=== PATIENT | male | born 1940 | race Caucasian/White ===

== ENCOUNTER 2023-05-11 12:15 | Inpatient (IN) | payer MEDICARE, OTHER ==
[~2023-05-11] VITALS: Ht 188 cm; Wt 68.7 kg
[2023-05-11] MEDS ORDERED: METO1TAB32 PO (12:32)
[2023-05-11] MEDS ORDERED: LEVO25TA5 PO (12:32)
[2023-05-11] MEDS ORDERED: NITR100C2 PO (12:32)
[2023-05-11] MEDS ORDERED: METF500T13 PO (12:32)
[2023-05-11] MEDS ORDERED: ATOR40TA75 PO (12:32)
[2023-05-11 14:42] LABS: HEMATOCRIT 46.7 % (42.0-52.0); HEMOGLOBIN 15.8 g/dl (13.5-17.5); MEAN CORPUSCULAR HEMOGLOBIN 29.9 pg (27.0-33.0); MEAN CORPUSCULAR HGB CONC 33.8 g/dl (32.0-36.5); MEAN CORPUSCULAR VOLUME 88.3 fl (80.0-96.0); PLATELET COUNT, AUTOMATED 285 10^3/uL (150-450); RED BLOOD COUNT 5.29 10^6/uL (4.30-6.10); WHITE BLOOD COUNT 10.4 10^3/uL (4.0-10.0)
[2023-05-11 15:15] LABS: ETHYL ALCOHOL (ETHANOL) < 0.003 % (0.000-0.010)
[2023-05-11 15:16] LABS: SALICYLATE LEVEL < 3.0 MG/DL (<30)
[2023-05-11 15:17] LABS: ALBUMIN 4.1 G/DL (3.2-5.2); ALKALINE PHOSPHATASE 90 U/L (46-116); ALT/SGPT 26 U/L (7.0-40); AST/SGOT 17 U/L (<34); BILIRUBIN,DIRECT 0.6 MG/DL (<0.4); BILIRUBIN,TOTAL 1.7 MG/DL (0.3-1.2); BLOOD UREA NITROGEN 30 MG/DL (9-23); CARBON DIOXIDE LEVEL 26 MMOL/L (20-31); CHLORIDE LEVEL 100 MMOL/L (98-107); CREATININE FOR GFR 1.17 MG/DL (0.70-1.30); GLOMERULAR FILTRATION RATE > 60.0 (>35); GLUCOSE, FASTING 113 MG/DL (74-106); POTASSIUM SERUM 3.9 MMOL/L (3.5-5.1); SODIUM LEVEL 135 MMOL/L (136-145); TOTAL PROTEIN 7.6 G/DL (5.7-8.2)
[2023-05-11 15:50] LABS: AMPHETAMINES LEVEL URINE NEGATIVE (NEGATIVE); BARBITURATES URINE NEGATIVE (NEGATIVE); BENZODIAZEPINES URINE NEGATIVE (NEGATIVE); CANNABINOIDS URINE NEGATIVE (NEGATIVE); COCAINE METABOLITE URINE NEGATIVE (NEGATIVE); METHADONE URINE NEGATIVE (NEGATIVE); OPIATES URINE NEGATIVE (NEGATIVE); PHENCYCLIDINE URINE NEGATIVE (NEGATIVE)
[2023-05-11] MEDS ORDERED: MOM 30ML SUSPENSION UDC PO PRN (17:40)
[2023-05-11] MEDS ORDERED: traZODone 50 MG TAB PO PRN (17:40)
[2023-05-11] MEDS ORDERED: MAALOX 30 ML SUSP *UDC PO PRN (17:40)
[2023-05-11] MEDS ORDERED: MED REC IN PROGRESS XX SCH (18:40)
[2023-05-11] MEDS ORDERED: HOME MED LIST COMPLETE! XX SCH (18:55)
[2023-05-11 23:18] VITALS: BP 139/74; TEMP 97.1; O2SAT 99
[2023-05-12 06:40] VITALS: BP 132/79; TEMP 97.6; O2SAT 98
[2023-05-12 09:30] VITALS: BP 136/69; TEMP 97.9; O2SAT 99
[2023-05-12] MEDS: SERTRALINE HCL 25 MG TABLET PO SCH (12:12)
[2023-05-12] MEDS ORDERED: COMBIVENT RESPIMAT 100-20MCG INHALER 4GM INH PRN (12:25)
[2023-05-12] MEDS ORDERED: ISOVUE-370 76% 100ML VIAL As Ordered ONE (13:52)
[2023-05-12 14:30] VITALS: BP 141/79; TEMP 98.1; O2SAT 99
[2023-05-12] MEDS: ENOXAPARIN 40MG/0.4ML SYRINGE (J1650 PER 10MG) SC SCH (14:43)
[2023-05-12] MEDS: METOPROLOL SUCC *XL* 25MG TAB (TopROL *XL*) PO SCH (14:43)
[2023-05-12] MEDS: COMBIVENT RESPIMAT 100-20MCG INHALER 4GM INH SCH ×2 (14:43→19:33)
[2023-05-12] MEDS: LEVOTHYROXINE 25MCG TABLET (0.025MG) PO SCH (14:44)
[2023-05-12] MEDS: NIRMATRELVIR/RITONAVIR CO-PACK (EMERGENCY USE AUTH) PO SCH ×2 (14:47→20:27)
[2023-05-12] MEDS ORDERED: MIRALAX *UNIT DOSE* 17GM PACKET PO PRN (17:40)
[2023-05-12] MEDS ORDERED: SENNA 8.6 MG TAB (SENOKOT) PO PRN (17:40)
[2023-05-12] MEDS: metFORMIN (GLUCOPHAGE) 500MG TAB PO SCH (17:41)
[2023-05-12] MEDS ORDERED: LACTULOSE 20GM/30ML SYRUP UDC PO ONE (18:00)
[2023-05-13] MEDS: IBUPROFEN 400MG TAB PO PRN (00:07)
[2023-05-13] MEDS: COMBIVENT RESPIMAT 100-20MCG INHALER 4GM INH SCH ×4 (01:46→20:38)
[2023-05-13] MEDS: LEVOTHYROXINE 25MCG TABLET (0.025MG) PO SCH (06:03)
[2023-05-13 06:42] VITALS: BP 124/62; TEMP 97.9; O2SAT 99
[2023-05-13] MEDS: SERTRALINE HCL 25 MG TABLET PO SCH (09:38)
[2023-05-13] MEDS: metFORMIN (GLUCOPHAGE) 500MG TAB PO SCH ×2 (09:38→18:38)
[2023-05-13] MEDS: NIRMATRELVIR/RITONAVIR CO-PACK (EMERGENCY USE AUTH) PO SCH ×2 (09:41→20:37)
[2023-05-13] MEDS: ENOXAPARIN 40MG/0.4ML SYRINGE (J1650 PER 10MG) SC SCH (09:55)
[2023-05-13] MEDS: METOPROLOL SUCC *XL* 25MG TAB (TopROL *XL*) PO SCH (09:55)
[2023-05-13] MEDS: CEFDINIR 300 MG CAP (OMNICEF) PO SCH ×2 (14:49→20:36)
[2023-05-13 18:29] VITALS: BP 138/84; TEMP 98.1; O2SAT 99
[2023-05-14] MEDS: COMBIVENT RESPIMAT 100-20MCG INHALER 4GM INH SCH ×4 (01:44→20:32)
[2023-05-14] MEDS: LEVOTHYROXINE 25MCG TABLET (0.025MG) PO SCH (06:03)
[2023-05-14 06:12] VITALS: BP 124/62; TEMP 97.6; O2SAT 95
[2023-05-14] MEDS: SERTRALINE HCL 25 MG TABLET PO SCH (08:50)
[2023-05-14] MEDS: METOPROLOL SUCC *XL* 25MG TAB (TopROL *XL*) PO SCH (08:50)
[2023-05-14] MEDS: CEFDINIR 300 MG CAP (OMNICEF) PO SCH ×2 (08:50→20:33)
[2023-05-14] MEDS: ENOXAPARIN 40MG/0.4ML SYRINGE (J1650 PER 10MG) SC SCH (08:52)
[2023-05-14] MEDS: metFORMIN (GLUCOPHAGE) 500MG TAB PO SCH ×2 (08:59→18:33)
[2023-05-14] MEDS: NIRMATRELVIR/RITONAVIR CO-PACK (EMERGENCY USE AUTH) PO SCH ×2 (09:33→20:34)
[2023-05-14 18:35] VITALS: BP 139/69; TEMP 98.3; O2SAT 98
[2023-05-14] MEDS: ACETAMINOPHEN TAB 650MG DOSE (2X325MG) PO PRN (23:00)
[2023-05-15] MEDS: COMBIVENT RESPIMAT 100-20MCG INHALER 4GM INH SCH ×4 (02:15→20:22)
[2023-05-15] MEDS: LEVOTHYROXINE 25MCG TABLET (0.025MG) PO SCH (05:43)
[2023-05-15 05:53] VITALS: BP 119/71; TEMP 98.1; O2SAT 99
[2023-05-15 06:50] LABS: HEMATOCRIT 41.7 % (42.0-52.0); HEMOGLOBIN 13.9 g/dl (13.5-17.5); MEAN CORPUSCULAR HEMOGLOBIN 29.7 pg (27.0-33.0); MEAN CORPUSCULAR HGB CONC 33.3 g/dl (32.0-36.5); MEAN CORPUSCULAR VOLUME 89.1 fl (80.0-96.0); PLATELET COUNT, AUTOMATED 240 10^3/uL (150-450); RED BLOOD COUNT 4.68 10^6/uL (4.30-6.10); WHITE BLOOD COUNT 6.5 10^3/uL (4.0-10.0)
[2023-05-15] MEDS: metFORMIN (GLUCOPHAGE) 500MG TAB PO SCH ×2 (08:36→17:40)
[2023-05-15] MEDS: SERTRALINE HCL 50 MG TAB PO SCH (08:36)
[2023-05-15] MEDS: CEFDINIR 300 MG CAP (OMNICEF) PO SCH ×2 (08:38→20:22)
[2023-05-15] MEDS: NIRMATRELVIR/RITONAVIR CO-PACK (EMERGENCY USE AUTH) PO SCH ×2 (08:38→20:21)
[2023-05-15] MEDS: ENOXAPARIN 40MG/0.4ML SYRINGE (J1650 PER 10MG) SC SCH (08:39)
[2023-05-15] MEDS: METOPROLOL SUCC *XL* 25MG TAB (TopROL *XL*) PO SCH (08:53)
[2023-05-15 09:51] LABS: CK-MB VALUE MASS < 1.0 NG/ML (<3.6)
[2023-05-15 09:55] LABS: CPK CREATINE PHOSPHOKINASE 39 U/L (46-171); MB/CK RELATIVE INDEX 2.56 (< OR =4)
[2023-05-15 16:06] VITALS: BP 126/81; TEMP 98.2; O2SAT 100
[2023-05-16] MEDS: COMBIVENT RESPIMAT 100-20MCG INHALER 4GM INH SCH ×4 (02:01→20:26)
[2023-05-16] MEDS: LEVOTHYROXINE 25MCG TABLET (0.025MG) PO SCH (05:26)
[2023-05-16 06:21] VITALS: BP 107/59; TEMP 98; O2SAT 97
[2023-05-16] MEDS: ENOXAPARIN 40MG/0.4ML SYRINGE (J1650 PER 10MG) SC SCH (08:02)
[2023-05-16] MEDS: SERTRALINE HCL 50 MG TAB PO SCH (08:03)
[2023-05-16] MEDS: CEFDINIR 300 MG CAP (OMNICEF) PO SCH ×2 (08:03→20:25)
[2023-05-16] MEDS: metFORMIN (GLUCOPHAGE) 500MG TAB PO SCH ×2 (08:03→17:56)
[2023-05-16] MEDS: NIRMATRELVIR/RITONAVIR CO-PACK (EMERGENCY USE AUTH) PO SCH ×2 (08:04→21:00)
[2023-05-16] MEDS: METOPROLOL SUCC *XL* 25MG TAB (TopROL *XL*) PO SCH (08:18)
[2023-05-16 16:05] VITALS: BP 126/72; TEMP 98.7; O2SAT 97
[2023-05-16] MEDS: diphenhydrAMINE 25MG CAP PO PRN ×2 (17:56→20:25)
[2023-05-16] MEDS: ACETAMINOPHEN TAB 650MG DOSE (2X325MG) PO PRN (17:56)
[2023-05-16] MEDS: IBUPROFEN 400MG TAB PO PRN (20:25)
[2023-05-16] MEDS: traZODone 25MG PER 1/2 TABLET PO PRN (20:26)
[2023-05-17] MEDS: COMBIVENT RESPIMAT 100-20MCG INHALER 4GM INH SCH ×4 (02:45→21:28)
[2023-05-17] MEDS: LEVOTHYROXINE 25MCG TABLET (0.025MG) PO SCH (05:28)
[2023-05-17] MEDS: METOPROLOL SUCC *XL* 25MG TAB (TopROL *XL*) PO SCH (08:11)
[2023-05-17] MEDS: metFORMIN (GLUCOPHAGE) 500MG TAB PO SCH ×2 (08:11→18:02)
[2023-05-17] MEDS: ATORVASTATIN 20 MG TAB PO SCH (08:12)
[2023-05-17] MEDS: SERTRALINE HCL 50 MG TAB PO SCH (08:12)
[2023-05-17] MEDS: ENOXAPARIN 40MG/0.4ML SYRINGE (J1650 PER 10MG) SC SCH (08:12)
[2023-05-17] MEDS: CEFDINIR 300 MG CAP (OMNICEF) PO SCH ×2 (08:12→21:29)
[2023-05-17 08:25] VITALS: BP 126/74
[2023-05-17] MEDS: diphenhydrAMINE 25MG CAP PO PRN ×2 (11:56→21:29)
[2023-05-17] MEDS: ACETAMINOPHEN TAB 650MG DOSE (2X325MG) PO PRN (11:56)
[2023-05-17 16:04] VITALS: BP 111/60; TEMP 97.9; O2SAT 99
[2023-05-17] MEDS: traZODone 25MG PER 1/2 TABLET PO PRN (21:28)
[2023-05-18] MEDS: COMBIVENT RESPIMAT 100-20MCG INHALER 4GM INH SCH ×4 (02:12→20:21)
[2023-05-18] MEDS: LEVOTHYROXINE 25MCG TABLET (0.025MG) PO SCH (05:28)
[2023-05-18 06:29] VITALS: BP 107/61; TEMP 97.3; O2SAT 97
[2023-05-18 07:31] LABS: HEMATOCRIT 41.3 % (42.0-52.0); HEMOGLOBIN 13.8 g/dl (13.5-17.5); MEAN CORPUSCULAR HEMOGLOBIN 29.7 pg (27.0-33.0); MEAN CORPUSCULAR HGB CONC 33.4 g/dl (32.0-36.5); PLATELET COUNT, AUTOMATED 214 10^3/uL (150-450); RED BLOOD COUNT 4.64 10^6/uL (4.30-6.10); WHITE BLOOD COUNT 7.2 10^3/uL (4.0-10.0)
[2023-05-18] MEDS: METOPROLOL SUCC *XL* 25MG TAB (TopROL *XL*) PO SCH (08:57)
[2023-05-18] MEDS: SERTRALINE HCL 50 MG TAB PO SCH (09:13)
[2023-05-18] MEDS: CEFDINIR 300 MG CAP (OMNICEF) PO SCH ×2 (09:13→20:22)
[2023-05-18] MEDS: metFORMIN (GLUCOPHAGE) 500MG TAB PO SCH ×2 (09:13→18:00)
[2023-05-18] MEDS: ATORVASTATIN 20 MG TAB PO SCH (09:13)
[2023-05-18] MEDS: ENOXAPARIN 40MG/0.4ML SYRINGE (J1650 PER 10MG) SC SCH (09:14)
[2023-05-18] MEDS: diphenhydrAMINE 25MG CAP PO PRN (09:52)
[2023-05-18] MEDS: ACETAMINOPHEN TAB 650MG DOSE (2X325MG) PO PRN (10:43)
[2023-05-18 11:55] LABS: ALBUMIN 3.4 G/DL (3.2-5.2); ALKALINE PHOSPHATASE 68 U/L (46-116); ALT/SGPT 16 U/L (7.0-40); AST/SGOT 23 U/L (<34); BILIRUBIN,TOTAL 0.9 MG/DL (0.3-1.2); BLOOD UREA NITROGEN 24 MG/DL (9-23); CALCIUM LEVEL 8.4 MG/DL (8.3-10.6); CARBON DIOXIDE LEVEL 22 MMOL/L (20-31); CHLORIDE LEVEL 106 MMOL/L (98-107); CREATININE FOR GFR 1.09 MG/DL (0.70-1.30); GLOMERULAR FILTRATION RATE > 60.0 (>35); GLUCOSE, FASTING 79 MG/DL (74-106); POTASSIUM SERUM 5.1 MMOL/L (3.5-5.1); SODIUM LEVEL 139 MMOL/L (136-145); TOTAL PROTEIN 6.5 G/DL (5.7-8.2)
[2023-05-18 18:33] VITALS: BP 136/77; TEMP 98.6; O2SAT 96
[2023-05-18] MEDS: traZODone 25MG PER 1/2 TABLET PO PRN (20:22)
[2023-05-19] MEDS: COMBIVENT RESPIMAT 100-20MCG INHALER 4GM INH SCH ×4 (02:02→21:07)
[2023-05-19] MEDS: LEVOTHYROXINE 25MCG TABLET (0.025MG) PO SCH (05:49)
[2023-05-19 06:23] VITALS: BP 147/77; TEMP 98; O2SAT 97
[2023-05-19] MEDS: METOPROLOL SUCC *XL* 25MG TAB (TopROL *XL*) PO SCH (08:22)
[2023-05-19] MEDS: ENOXAPARIN 40MG/0.4ML SYRINGE (J1650 PER 10MG) SC SCH (08:23)
[2023-05-19] MEDS: CEFDINIR 300 MG CAP (OMNICEF) PO SCH ×2 (08:23→21:07)
[2023-05-19] MEDS: ATORVASTATIN 20 MG TAB PO SCH (08:23)
[2023-05-19] MEDS: SERTRALINE HCL 50 MG TAB PO SCH (08:23)
[2023-05-19] MEDS: metFORMIN (GLUCOPHAGE) 500MG TAB PO SCH ×2 (08:24→17:25)
[2023-05-19 10:21] VITALS: BP 119/79; TEMP 97.9; O2SAT 95
[2023-05-19 17:39] VITALS: BP 141/74; TEMP 97.9; O2SAT 99
[2023-05-19] MEDS: traZODone 25MG PER 1/2 TABLET PO PRN (21:07)
[2023-05-20] MEDS: COMBIVENT RESPIMAT 100-20MCG INHALER 4GM INH SCH ×4 (02:30→20:47)
[2023-05-20] MEDS: LEVOTHYROXINE 25MCG TABLET (0.025MG) PO SCH (05:54)
[2023-05-20 06:02] VITALS: BP 120/69; TEMP 98.1; O2SAT 95
[2023-05-20] MEDS: SERTRALINE HCL 50 MG TAB PO SCH (08:35)
[2023-05-20] MEDS: CEFDINIR 300 MG CAP (OMNICEF) PO SCH ×2 (08:35→20:47)
[2023-05-20] MEDS: ATORVASTATIN 20 MG TAB PO SCH (08:35)
[2023-05-20] MEDS: metFORMIN (GLUCOPHAGE) 500MG TAB PO SCH ×2 (08:36→17:06)
[2023-05-20] MEDS: ENOXAPARIN 40MG/0.4ML SYRINGE (J1650 PER 10MG) SC SCH (08:36)
[2023-05-20] MEDS: METOPROLOL SUCC *XL* 25MG TAB (TopROL *XL*) PO SCH (08:44)
[2023-05-20] MEDS: diphenhydrAMINE 25MG CAP PO PRN (15:07)
[2023-05-21] MEDS: COMBIVENT RESPIMAT 100-20MCG INHALER 4GM INH SCH ×4 (03:02→20:35)
[2023-05-21] MEDS: LEVOTHYROXINE 25MCG TABLET (0.025MG) PO SCH (05:40)
[2023-05-21 06:26] LABS: HEMATOCRIT 40.1 % (42.0-52.0); HEMOGLOBIN 13.5 g/dl (13.5-17.5); MEAN CORPUSCULAR HEMOGLOBIN 29.6 pg (27.0-33.0); MEAN CORPUSCULAR HGB CONC 33.7 g/dl (32.0-36.5); MEAN CORPUSCULAR VOLUME 87.9 fl (80.0-96.0); PLATELET COUNT, AUTOMATED 204 10^3/uL (150-450); RED BLOOD COUNT 4.56 10^6/uL (4.30-6.10); WHITE BLOOD COUNT 7.5 10^3/uL (4.0-10.0)
[2023-05-21 06:38] VITALS: BP 118/63; TEMP 98.5; O2SAT 96
[2023-05-21] MEDS: ATORVASTATIN 20 MG TAB PO SCH (08:19)
[2023-05-21] MEDS: ENOXAPARIN 40MG/0.4ML SYRINGE (J1650 PER 10MG) SC SCH (08:19)
[2023-05-21] MEDS: CEFDINIR 300 MG CAP (OMNICEF) PO SCH ×2 (08:19→20:34)
[2023-05-21] MEDS: metFORMIN (GLUCOPHAGE) 500MG TAB PO SCH ×2 (08:19→17:03)
[2023-05-21] MEDS: METOPROLOL SUCC *XL* 25MG TAB (TopROL *XL*) PO SCH (08:35)
[2023-05-21] MEDS: SERTRALINE HCL 25 MG TABLET PO SCH (08:47)
[2023-05-21 17:12] VITALS: BP 121/67; TEMP 97.3; O2SAT 98
[2023-05-22] MEDS: COMBIVENT RESPIMAT 100-20MCG INHALER 4GM INH SCH ×4 (01:37→20:41)
[2023-05-22] MEDS: LEVOTHYROXINE 25MCG TABLET (0.025MG) PO SCH (05:35)
[2023-05-22 06:25] VITALS: BP 120/66; TEMP 98; O2SAT 98
[2023-05-22] MEDS: ENOXAPARIN 40MG/0.4ML SYRINGE (J1650 PER 10MG) SC SCH (08:29)
[2023-05-22] MEDS: CEFDINIR 300 MG CAP (OMNICEF) PO SCH ×2 (08:30→20:41)
[2023-05-22] MEDS: metFORMIN (GLUCOPHAGE) 500MG TAB PO SCH ×2 (08:30→17:17)
[2023-05-22] MEDS: SERTRALINE HCL 25 MG TABLET PO SCH (08:30)
[2023-05-22] MEDS: ATORVASTATIN 20 MG TAB PO SCH (08:30)
[2023-05-22] MEDS: METOPROLOL SUCC *XL* 25MG TAB (TopROL *XL*) PO SCH (08:31)
[2023-05-22] MEDS: ACETAMINOPHEN TAB 650MG DOSE (2X325MG) PO PRN (13:10)
[2023-05-22 16:28] VITALS: BP 125/74; TEMP 98.1; O2SAT 99
[2023-05-22 16:30] VITALS: BP 144/68; TEMP 97.3; O2SAT 98
[2023-05-23] MEDS: COMBIVENT RESPIMAT 100-20MCG INHALER 4GM INH SCH ×4 (02:36→20:20)
[2023-05-23] MEDS: LEVOTHYROXINE 25MCG TABLET (0.025MG) PO SCH (05:49)
[2023-05-23 06:16] VITALS: BP 139/65; TEMP 97.9; O2SAT 100
[2023-05-23] MEDS: SERTRALINE HCL 25 MG TABLET PO SCH (09:00)
[2023-05-23] MEDS: ATORVASTATIN 20 MG TAB PO SCH (09:00)
[2023-05-23] MEDS: ENOXAPARIN 40MG/0.4ML SYRINGE (J1650 PER 10MG) SC SCH (09:01)
[2023-05-23] MEDS: metFORMIN (GLUCOPHAGE) 500MG TAB PO SCH ×2 (09:02→17:27)
[2023-05-23] MEDS: METOPROLOL SUCC *XL* 25MG TAB (TopROL *XL*) PO SCH (09:02)
[2023-05-23 16:43] VITALS: BP 138/59; TEMP 98.3; O2SAT 99
[2023-05-24] MEDS: COMBIVENT RESPIMAT 100-20MCG INHALER 4GM INH SCH ×4 (02:58→20:24)
[2023-05-24] MEDS: LEVOTHYROXINE 25MCG TABLET (0.025MG) PO SCH (06:20)
[2023-05-24 06:52] VITALS: BP 108/58; TEMP 98.3; O2SAT 95
[2023-05-24 07:28] LABS: HEMATOCRIT 41.2 % (42.0-52.0); HEMOGLOBIN 13.8 g/dl (13.5-17.5); MEAN CORPUSCULAR HEMOGLOBIN 29.5 pg (27.0-33.0); MEAN CORPUSCULAR HGB CONC 33.5 g/dl (32.0-36.5); PLATELET COUNT, AUTOMATED 226 10^3/uL (150-450); RED BLOOD COUNT 4.68 10^6/uL (4.30-6.10); WHITE BLOOD COUNT 8.6 10^3/uL (4.0-10.0)
[2023-05-24] MEDS: ENOXAPARIN 40MG/0.4ML SYRINGE (J1650 PER 10MG) SC SCH (08:12)
[2023-05-24] MEDS: metFORMIN (GLUCOPHAGE) 500MG TAB PO SCH ×2 (08:12→17:01)
[2023-05-24] MEDS: METOPROLOL SUCC *XL* 25MG TAB (TopROL *XL*) PO SCH (08:13)
[2023-05-24] MEDS: ATORVASTATIN 20 MG TAB PO SCH (08:13)
[2023-05-24] MEDS: SERTRALINE HCL 25 MG TABLET PO SCH (08:13)
[2023-05-24 18:16] VITALS: BP 120/79; TEMP 98.8; O2SAT 96
[2023-05-24] MEDS: traZODone 25MG PER 1/2 TABLET PO PRN (20:24)
[2023-05-25] MEDS: COMBIVENT RESPIMAT 100-20MCG INHALER 4GM INH SCH ×4 (02:04→21:10)
[2023-05-25] MEDS: LEVOTHYROXINE 25MCG TABLET (0.025MG) PO SCH (06:05)
[2023-05-25 06:23] VITALS: BP 138/92; TEMP 97.2; O2SAT 99
[2023-05-25] MEDS: ENOXAPARIN 40MG/0.4ML SYRINGE (J1650 PER 10MG) SC SCH (08:13)
[2023-05-25] MEDS: ATORVASTATIN 20 MG TAB PO SCH (08:14)
[2023-05-25] MEDS: SERTRALINE HCL 25 MG TABLET PO SCH (08:14)
[2023-05-25] MEDS: METOPROLOL SUCC *XL* 25MG TAB (TopROL *XL*) PO SCH (08:15)
[2023-05-25] MEDS: metFORMIN (GLUCOPHAGE) 500MG TAB PO SCH ×2 (08:15→17:54)
[2023-05-25 16:31] VITALS: BP 106/56; TEMP 99; O2SAT 96
[2023-05-26] MEDS: COMBIVENT RESPIMAT 100-20MCG INHALER 4GM INH SCH ×4 (01:26→20:42)
[2023-05-26] MEDS: LEVOTHYROXINE 25MCG TABLET (0.025MG) PO SCH (05:42)
[2023-05-26 06:30] VITALS: BP 117/67; TEMP 98.2; O2SAT 95
[2023-05-26] MEDS: ATORVASTATIN 20 MG TAB PO SCH (08:27)
[2023-05-26] MEDS: METOPROLOL SUCC *XL* 25MG TAB (TopROL *XL*) PO SCH (08:27)
[2023-05-26] MEDS: metFORMIN (GLUCOPHAGE) 500MG TAB PO SCH ×2 (08:28→17:47)
[2023-05-26] MEDS: SERTRALINE HCL 25 MG TABLET PO SCH (08:28)
[2023-05-26] MEDS: ENOXAPARIN 40MG/0.4ML SYRINGE (J1650 PER 10MG) SC SCH ×3 (08:29→09:38)
[2023-05-26] MEDS: ACETAMINOPHEN TAB 650MG DOSE (2X325MG) PO PRN (13:44)
[2023-05-26 17:46] VITALS: BP 129/76; TEMP 98; O2SAT 98
[2023-05-27] MEDS: COMBIVENT RESPIMAT 100-20MCG INHALER 4GM INH SCH ×4 (01:46→19:54)
[2023-05-27] MEDS: LEVOTHYROXINE 25MCG TABLET (0.025MG) PO SCH (05:55)
[2023-05-27 06:35] VITALS: BP 120/62; TEMP 98.1; O2SAT 96
[2023-05-27] MEDS: SERTRALINE HCL 25 MG TABLET PO SCH (09:10)
[2023-05-27] MEDS: metFORMIN (GLUCOPHAGE) 500MG TAB PO SCH ×2 (09:10→18:57)
[2023-05-27] MEDS: METOPROLOL SUCC *XL* 25MG TAB (TopROL *XL*) PO SCH (09:12)
[2023-05-27] MEDS: ATORVASTATIN 20 MG TAB PO SCH (09:12)
[2023-05-27] MEDS: ENOXAPARIN 40MG/0.4ML SYRINGE (J1650 PER 10MG) SC SCH (09:12)
[2023-05-27 15:51] VITALS: BP 108/57; TEMP 97.8; O2SAT 94
[2023-05-28] MEDS: COMBIVENT RESPIMAT 100-20MCG INHALER 4GM INH SCH ×4 (02:23→20:33)
[2023-05-28] MEDS: LEVOTHYROXINE 25MCG TABLET (0.025MG) PO SCH (05:46)
[2023-05-28 06:25] VITALS: BP 117/56; TEMP 97.1; O2SAT 95
[2023-05-28] MEDS: SERTRALINE HCL 25 MG TABLET PO SCH (08:27)
[2023-05-28] MEDS: ATORVASTATIN 20 MG TAB PO SCH (08:27)
[2023-05-28] MEDS: ENOXAPARIN 40MG/0.4ML SYRINGE (J1650 PER 10MG) SC SCH (08:27)
[2023-05-28] MEDS: metFORMIN (GLUCOPHAGE) 500MG TAB PO SCH ×2 (08:27→17:31)
[2023-05-28] MEDS: METOPROLOL SUCC *XL* 25MG TAB (TopROL *XL*) PO SCH (08:29)
[2023-05-28] MEDS: ACETAMINOPHEN TAB 650MG DOSE (2X325MG) PO PRN (13:59)
[2023-05-28 16:34] VITALS: BP 132/74; TEMP 98.2; O2SAT 97
[2023-05-29] MEDS: COMBIVENT RESPIMAT 100-20MCG INHALER 4GM INH SCH ×4 (02:22→20:44)
[2023-05-29] MEDS: LEVOTHYROXINE 25MCG TABLET (0.025MG) PO SCH (05:41)
[2023-05-29 06:29] VITALS: BP 108/53; TEMP 97.4; O2SAT 98
[2023-05-29] MEDS: METOPROLOL SUCC *XL* 25MG TAB (TopROL *XL*) PO SCH (09:00)
[2023-05-29] MEDS: ATORVASTATIN 20 MG TAB PO SCH (09:07)
[2023-05-29] MEDS: SERTRALINE HCL 25 MG TABLET PO SCH (09:07)
[2023-05-29] MEDS: metFORMIN (GLUCOPHAGE) 500MG TAB PO SCH ×2 (09:08→17:56)
[2023-05-29] MEDS: ENOXAPARIN 40MG/0.4ML SYRINGE (J1650 PER 10MG) SC SCH (09:08)
[2023-05-29] MEDS: buPROPion (WELLBUTRIN SR) 100 MG SR TAB PO SCH (10:02)
[2023-05-29 14:20] LABS: ALBUMIN 3.6 G/DL (3.2-5.2); ALKALINE PHOSPHATASE 71 U/L (46-116); ALT/SGPT 20 U/L (7.0-40); AST/SGOT 14 U/L (<34); BILIRUBIN,TOTAL 0.9 MG/DL (0.3-1.2); BLOOD UREA NITROGEN 25 MG/DL (9-23); CALCIUM LEVEL 9.1 MG/DL (8.3-10.6); CARBON DIOXIDE LEVEL 23 MMOL/L (20-31); CHLORIDE LEVEL 103 MMOL/L (98-107); CREATININE FOR GFR 0.96 MG/DL (0.70-1.30); GLOMERULAR FILTRATION RATE > 60.0 (>35); GLUCOSE, FASTING 141 MG/DL (74-106); POTASSIUM SERUM 4.3 MMOL/L (3.5-5.1); SODIUM LEVEL 136 MMOL/L (136-145)
[2023-05-29 16:36] VITALS: BP 144/59; TEMP 98.2; O2SAT 94
[2023-05-30] MEDS: COMBIVENT RESPIMAT 100-20MCG INHALER 4GM INH SCH ×4 (01:53→20:40)
[2023-05-30] MEDS: LEVOTHYROXINE 25MCG TABLET (0.025MG) PO SCH (05:39)
[2023-05-30 06:06] VITALS: BP 114/60; TEMP 98.4; O2SAT 97
[2023-05-30] MEDS: ENOXAPARIN 40MG/0.4ML SYRINGE (J1650 PER 10MG) SC SCH (08:59)
[2023-05-30] MEDS: metFORMIN (GLUCOPHAGE) 500MG TAB PO SCH ×2 (08:59→18:10)
[2023-05-30] MEDS: buPROPion (WELLBUTRIN SR) 100 MG SR TAB PO SCH (08:59)
[2023-05-30] MEDS: ATORVASTATIN 20 MG TAB PO SCH (08:59)
[2023-05-30] MEDS: SERTRALINE 100 MG TAB PO SCH (08:59)
[2023-05-30] MEDS: METOPROLOL SUCC *XL* 25MG TAB (TopROL *XL*) PO SCH (09:00)
[2023-05-30] MEDS: IBUPROFEN 400MG TAB PO PRN (15:04)
[2023-05-30 15:56] VITALS: BP 118/72; TEMP 97.6; O2SAT 100
[2023-05-31] MEDS: COMBIVENT RESPIMAT 100-20MCG INHALER 4GM INH SCH ×4 (02:00→20:28)
[2023-05-31] MEDS: LEVOTHYROXINE 25MCG TABLET (0.025MG) PO SCH (06:19)
[2023-05-31 07:04] VITALS: BP 105/54; TEMP 98.6; O2SAT 98
[2023-05-31] MEDS: SERTRALINE 100 MG TAB PO SCH (08:17)
[2023-05-31] MEDS: ATORVASTATIN 20 MG TAB PO SCH (08:18)
[2023-05-31] MEDS: metFORMIN (GLUCOPHAGE) 500MG TAB PO SCH ×2 (08:18→18:20)
[2023-05-31] MEDS: buPROPion (WELLBUTRIN SR) 100 MG SR TAB PO SCH (08:18)
[2023-05-31] MEDS: ENOXAPARIN 40MG/0.4ML SYRINGE (J1650 PER 10MG) SC SCH (08:18)
[2023-05-31] MEDS: METOPROLOL SUCC *XL* 25MG TAB (TopROL *XL*) PO SCH (08:22)
[2023-05-31 15:34] VITALS: BP 130/96; TEMP 97.9; O2SAT 97
[2023-05-31] MEDS: diphenhydrAMINE 25MG CAP PO PRN (15:48)
[2023-05-31] MEDS: ACETAMINOPHEN TAB 650MG DOSE (2X325MG) PO PRN (16:57)
[2023-06-01] MEDS: COMBIVENT RESPIMAT 100-20MCG INHALER 4GM INH SCH ×4 (01:47→20:42)
[2023-06-01] MEDS: LEVOTHYROXINE 25MCG TABLET (0.025MG) PO SCH (05:38)
[2023-06-01 06:25] VITALS: BP 108/55; TEMP 98.2; O2SAT 95
[2023-06-01] MEDS: ENOXAPARIN 40MG/0.4ML SYRINGE (J1650 PER 10MG) SC SCH (08:11)
[2023-06-01] MEDS: SERTRALINE 100 MG TAB PO SCH (08:12)
[2023-06-01] MEDS: buPROPion (WELLBUTRIN SR) 100 MG SR TAB PO SCH (08:12)
[2023-06-01] MEDS: metFORMIN (GLUCOPHAGE) 500MG TAB PO SCH ×2 (08:12→17:18)
[2023-06-01] MEDS: ATORVASTATIN 20 MG TAB PO SCH (08:12)
[2023-06-01] MEDS: METOPROLOL SUCC *XL* 25MG TAB (TopROL *XL*) PO SCH (08:27)
[2023-06-01] MEDS: diphenhydrAMINE 25MG CAP PO PRN (17:38)
[2023-06-01 18:34] VITALS: BP 112/69; TEMP 97.9; O2SAT 100
[2023-06-01] MEDS: traZODone 25MG PER 1/2 TABLET PO PRN (20:56)
[2023-06-02] MEDS: COMBIVENT RESPIMAT 100-20MCG INHALER 4GM INH SCH ×4 (02:56→20:16)
[2023-06-02] MEDS: LEVOTHYROXINE 25MCG TABLET (0.025MG) PO SCH (05:15)
[2023-06-02 05:59] VITALS: BP 125/61; TEMP 97.5; O2SAT 97
[2023-06-02] MEDS: metFORMIN (GLUCOPHAGE) 500MG TAB PO SCH ×2 (09:57→17:51)
[2023-06-02] MEDS: SERTRALINE 100 MG TAB PO SCH (09:57)
[2023-06-02] MEDS: METOPROLOL SUCC *XL* 25MG TAB (TopROL *XL*) PO SCH (09:58)
[2023-06-02] MEDS: buPROPion (WELLBUTRIN SR) 100 MG SR TAB PO SCH (09:58)
[2023-06-02] MEDS: ATORVASTATIN 20 MG TAB PO SCH (09:58)
[2023-06-02] MEDS: ENOXAPARIN 40MG/0.4ML SYRINGE (J1650 PER 10MG) SC SCH (09:58)
[2023-06-02] MEDS: ACETAMINOPHEN TAB 650MG DOSE (2X325MG) PO PRN (14:33)
[2023-06-02] MEDS: traZODone 25MG PER 1/2 TABLET PO PRN (20:16)
[2023-06-03] MEDS: COMBIVENT RESPIMAT 100-20MCG INHALER 4GM INH SCH ×4 (01:58→21:32)
[2023-06-03] MEDS: LEVOTHYROXINE 25MCG TABLET (0.025MG) PO SCH (05:30)
[2023-06-03 06:21] VITALS: BP 120/74; TEMP 97.8; O2SAT 98
[2023-06-03] MEDS: metFORMIN (GLUCOPHAGE) 500MG TAB PO SCH ×2 (08:19→18:30)
[2023-06-03] MEDS: ENOXAPARIN 40MG/0.4ML SYRINGE (J1650 PER 10MG) SC SCH (08:20)
[2023-06-03] MEDS: buPROPion (WELLBUTRIN SR) 100 MG SR TAB PO SCH (08:20)
[2023-06-03] MEDS: ATORVASTATIN 20 MG TAB PO SCH (08:20)
[2023-06-03] MEDS: SERTRALINE 100 MG TAB PO SCH (08:20)
[2023-06-03] MEDS: METOPROLOL SUCC *XL* 25MG TAB (TopROL *XL*) PO SCH (08:35)
[2023-06-03 16:23] VITALS: BP 132/68; TEMP 98; O2SAT 97
[2023-06-04] MEDS: COMBIVENT RESPIMAT 100-20MCG INHALER 4GM INH SCH ×4 (02:41→21:02)
[2023-06-04] MEDS: LEVOTHYROXINE 25MCG TABLET (0.025MG) PO SCH (05:49)
[2023-06-04 06:23] VITALS: BP 115/60; TEMP 97; O2SAT 99
[2023-06-04] MEDS: buPROPion (WELLBUTRIN SR) 100 MG SR TAB PO SCH (08:20)
[2023-06-04] MEDS: ATORVASTATIN 20 MG TAB PO SCH (08:20)
[2023-06-04] MEDS: metFORMIN (GLUCOPHAGE) 500MG TAB PO SCH ×2 (08:20→17:14)
[2023-06-04] MEDS: SERTRALINE 100 MG TAB PO SCH (08:20)
[2023-06-04] MEDS: ENOXAPARIN 40MG/0.4ML SYRINGE (J1650 PER 10MG) SC SCH (08:20)
[2023-06-04] MEDS: METOPROLOL SUCC *XL* 25MG TAB (TopROL *XL*) PO SCH (08:26)
[2023-06-04 18:00] VITALS: BP 110/65; TEMP 98.2; O2SAT 98
[2023-06-05] MEDS: COMBIVENT RESPIMAT 100-20MCG INHALER 4GM INH SCH ×2 (01:41→08:17)
[2023-06-05] MEDS: LEVOTHYROXINE 25MCG TABLET (0.025MG) PO SCH (05:42)
[2023-06-05 07:02] VITALS: BP 121/66; TEMP 97.7; O2SAT 100
[2023-06-05] MEDS: ENOXAPARIN 40MG/0.4ML SYRINGE (J1650 PER 10MG) SC SCH (08:17)
[2023-06-05] MEDS: buPROPion (WELLBUTRIN SR) 100 MG SR TAB PO SCH (08:18)
[2023-06-05] MEDS: ATORVASTATIN 20 MG TAB PO SCH (08:18)
[2023-06-05] MEDS: metFORMIN (GLUCOPHAGE) 500MG TAB PO SCH (08:18)
[2023-06-05] MEDS: SERTRALINE 100 MG TAB PO SCH (08:18)
[2023-06-05 08:25] VITALS: BP 138/73
[2023-06-05] MEDS: METOPROLOL SUCC *XL* 25MG TAB (TopROL *XL*) PO SCH (08:25)
[2023-06-05] MEDS ORDERED: MIRA1POW3 PO (09:25)
[2023-06-05] MEDS ORDERED: TRAZ-252 PO (09:25)
[2023-06-05] MEDS ORDERED: ZOLO100T PO (09:25)
[2023-06-05] MEDS ORDERED: COMBAER6 INH (09:25)
[2023-06-05] MEDS ORDERED: BUPR10TASR PO (09:25)
[2023-06-05] MEDS ORDERED: SENO8.6T5 PO (09:25)
== END 2023-06-05 11:31 | disposition home or self-care (01) | DRG 885 ==
LOC: M ED 12:15 → M ED INP 17:37 → M PSY 21:39
PROVIDERS: ADMIT Student in an Organized Health Care Education/Training Program; ATTEND Student in an Organized Health Care Education/Training Program
DX: F31.9 Bipolar disorder, unspecified (principal); U07.1 COVID-19; R45.851 Suicidal ideations; N39.0 Urinary tract infection, site not specified; F32.9 Major depressive disorder, single episode, unspecified; Z91.148 Patient's other noncompliance with medication regimen for other reason; Z88.0 Allergy status to penicillin; Z79.899 Other long term (current) drug therapy; E03.9 Hypothyroidism, unspecified; E78.5 Hyperlipidemia, unspecified; R10.9 Unspecified abdominal pain; I10 Essential (primary) hypertension; R33.9 Retention of urine, unspecified; R07.89 Other chest pain